=== PATIENT | female | born 1950 | race Caucasian/White ===

== ENCOUNTER 2024-04-21 19:41 | Observation (INO) ==
[2024-04-21 20:13] LABS: ABS Basophils 0.1 10^3/uL (0.0-0.1); ABS Eosinophils 0.2 10^3/uL (0.0-0.5); ABS Monocytes 0.6 10^3/uL (0.0-0.9); ABS Neutrophils 6.2 10^3/uL (1.5-7.6); Eosinophil % 2.7 %; Hematocrit 39.8 % (35-45); Hemoglobin 13.5 g/dL (11.5-14.3); Lymphocyte % 21.9 %; Mean Corpuscular Hemoglobin 30.6 pg (27-33); Mean Corpuscular Hgb Conc 33.8 g/dL (31-36); Mean Corpuscular Volume 90.5 fL (80-97); Mean Platelet Volume 8.3 fL (7.5-11.2); Platelet Count 254 10^3/uL (150-450); Red Cell Distribution Width 13.4 % (12-17); White Blood Count 9.2 10^3/uL (3.8-11.8)
[2024-04-21 20:50] LABS: Albumin/Globulin Ratio 1.7 (1-3); Calcium 8.9 mg/dL (8.6-10.3); Creatinine, Serum 0.74 mg/dL (0.51-0.95); Globulin 2.4 g/dL (2-4); Magnesium 2.2 mg/dL (1.9-2.7); Potassium 3.8 mmol/L (3.5-5.0); Total Bilirubin 0.4 mg/dL (0.2-1.0); Total Protein 6.4 g/dL (6.4-8.9); eGFR CKD-EPI 85.9 (>60)
[2024-04-21 21:18] LABS: High Sensitivity Troponin 1 Hr 17 pg/mL (<15)
[2024-04-22] MEDS: Furosemide 40 mg/4 ml IV VIAL IV SLOW PU ONE (01:04)
[2024-04-22] MEDS ORDERED: Sulfur Hexaflouride MICROSPHR 25 MG VIAL IV ONE (03:48)
[2024-04-22 04:01] LABS: HDL Cholesterol 44.3 mg/dL
[2024-04-22] MEDS ORDERED: guaiFENesin 100 mg/5 ml LIQ unit dose cup PO PRN (04:20)
[2024-04-22 04:31] LABS: High Sensitivity Troponin 3 Hr 14 pg/mL (<15)
[2024-04-22] MEDS: Enoxaparin 40 MG/0.4 ML SYR SUBCUT SCH (08:50)
[2024-04-22 10:26] LABS: TSH Ultra Thyroid Stim Horm 2.04 mcIU/mL (0.34-5.60)
[2024-04-22 10:27] LABS: Free T3 2.7 pg/mL (2.5-3.9)
[2024-04-22 10:28] LABS: Free T4 0.79 ng/dL (0.61-1.12)
[2024-04-22] MEDS ORDERED: Sulfur Hexaflouride MICROSPHR 25 MG VIAL ONE (10:33)
[2024-04-22] MEDS ORDERED: Flumazenil 0.5 mg/5 ml 0.1 MG/ML 5 ml VIAL IV PRN (11:39)
[2024-04-22] MEDS ORDERED: Naloxone 0.4 mg VIAL 0.4 mg/ml 1 ml VIAL IV PUSH PRN (11:39)
[2024-04-22 11:47] LABS: High Sensitivity Troponin 1 Hr 12 pg/mL (<15)
[2024-04-22] MEDS ORDERED: Heparin 2 UNITS/ML 1000 mls 3,000 ML IV ONE (12:02)
[2024-04-22] MEDS ORDERED: Lidocaine 1% MPF 5 ML VIAL ONE (12:02)
[2024-04-22] MEDS ORDERED: nitroGLYCERIN DRIP 25,000 MCG/250 ML BTL ONE (12:02)
[2024-04-22] MEDS ORDERED: niCARdipine 0.1MG/ML IVPREMIX 20 MG/200 ML BAG IV ONE (12:02)
[2024-04-22] MEDS ORDERED: Iohexol 350 (CONTRAST) 200 ML MDV IV ONE (12:02)
[2024-04-22] MEDS ORDERED: Midazolam 5 mg/5 ml VIAL 1 mg/ml 5 ml VIAL (5 mg) ONE (12:25)
[2024-04-22] MEDS ORDERED: fentaNYL 100 mcg/2 ml 50 MCG/ML VIAL ONE (12:25)
[2024-04-22] MEDS ORDERED: Heparin 1,000 UNIT/ML 10 ml (10,000 UNITS) CATHLAB/DIALYSIS ONE (12:31)
[2024-04-22] MEDS: fentaNYL 100 mcg/2 ml 50 MCG/ML VIAL IV SLOW PU ONE (14:05)
[2024-04-22] MEDS: NS 0.9% 1000 ml BAG 1,000 ML IV SCH (14:06)
[2024-04-22] MEDS: Midazolam 10 mg/10 ml VIAL 1 mg/ml 10 ml VIAL (10 mg) IV SLOW PU ONE (14:06)
[2024-04-23 05:52] LABS: Hematocrit 36.8 % (35-45); Hemoglobin 12.6 g/dL (11.5-14.3); Mean Corpuscular Hemoglobin 30.7 pg (27-33); Mean Corpuscular Hgb Conc 34.1 g/dL (31-36); Mean Corpuscular Volume 90.1 fL (80-97); Mean Platelet Volume 7.8 fL (7.5-11.2); Platelet Count 220 10^3/uL (150-450); Red Blood Count 4.09 10^6/uL (3.63-4.92); Red Cell Distribution Width 13.2 % (12-17); White Blood Count 5.9 10^3/uL (3.8-11.8)
[2024-04-23 07:51] LABS: Calcium 8.4 mg/dL (8.6-10.3); Creatinine, Serum 0.7 mg/dL (0.51-0.95); Magnesium 2.2 mg/dL (1.9-2.7); Potassium 3.9 mmol/L (3.5-5.0); eGFR CKD-EPI 91.8 (>60)
[2024-04-23 10:02] VITALS: BP 121/75
[2024-04-23] MEDS: KCL 20 MEQ/100 ML IVPREMIX 20 MEQ/100 ML BAG IV ONE (10:20)
[2024-04-23] MEDS: Potassium Chlor 20 meq TAB.ER PO ONE (12:29)
== END 2024-04-23 15:30 | disposition home or self-care (01) ==
LOC: EDHOLD 19:41 → ED 19:41 → SUATTDRO 04-22 02:50 → EDHOLD 04-22 12:05 → MEDTELE 04-22 18:21
PROVIDERS: ADMIT Internal Medicine; ATTEND Student in an Organized Health Care Education/Training Program